=== PATIENT | female | born 1985 | race Asian ===

== ENCOUNTER 2020-05-09 02:13 | Inpatient (IN) | payer MEDICAID ==
[~2020-05-09] VITALS: Ht 152.4 cm; Wt 71.2 kg
[2020-05-09] MEDS ORDERED: PROMETHAZINE HCL 25 MG/ML 1ML AMPULE IM PRN (02:30)
[2020-05-09] MEDS ORDERED: ROPIVACAINE 0.2% 100ML VIAL 100 ML EP PRN (02:30)
[2020-05-09] MEDS ORDERED: LACTATED RINGERS 1000ML 1,000 ML IV PRN (02:30)
[2020-05-09] MEDS ORDERED: EPHEDRINE SULFATE 50 MG/ML AMPULE IVP PRN (02:30)
[2020-05-09] MEDS ORDERED: NALOXONE HCL 0.4 MG/1 ML ML IV PRN (02:30)
[2020-05-09] MEDS ORDERED: MEPERIDINE-PF 50 MG/ML SYG IVP PRN (02:30)
[2020-05-09] MEDS ORDERED: LACTATED RINGERS 500 ML 500 ML IV PRN (02:30)
[2020-05-09] MEDS ORDERED: AMPICILLIN 2GM+NS 100ML 100 ML IV ONE (02:39)
[2020-05-09 02:45] VITALS: BP 119/75
[2020-05-09] MEDS ORDERED: AMPICILLIN 2GM+NS 100ML 100 ML IV SCH (02:45)
[2020-05-09 03:00] LABS: BILIRUBIN,URINE Negative (NEGATIVE); COLOR,URINE Yellow (YELLOW); GLUCOSE, URINE (UA) Negative (NEGATIVE); KETONES,URINE Trace mg/dL (NEGATIVE); LEUKOCYTE ESTERASE ,URINE Large (NEGATIVE); NITRATE,URINE Negative (NEGATIVE); OCCULT BLOOD,URINE Negative (NEGATIVE); PH,URINE 6.5 (5.0-8.0); PROTEIN,URINE Negative (NEGATIVE)
[2020-05-09 03:05] LABS: MEAN CORPUSCULAR HEMOGLOBIN 21.9 pg (27.0-33.0); MEAN CORPUSCULAR HGB CONC 31.7 g/dL (32.0-36.0); MEAN CORPUSCULAR VOLUME 68.9 fL (79-99); PLATELET COUNT (AUTO) 159 K/uL (130-400); RED BLOOD CELL COUNT(AUTO) 5.08 MIL/uL (4.00-5.50); WHITE BLOOD COUNT (AUTO) 10.5 K/uL (4.8-10.8)
[2020-05-09 03:07] LABS: APPEARANCE,URINE SLIGHTLY CLOUDY (CLEAR)
[2020-05-09 03:09] LABS: BACTERIA,URINE Moderate /HPF (None Seen); RBC,URINE 0-1 /HPF (0-1); SQUAMOUS EPITHELIAL CELL,UR Moderate /HPF (0-2); WBC,URINE 26-50 /HPF (0-1)
[2020-05-09] MEDS ORDERED: PREN1TAB80 PO (03:54)
[2020-05-09] MEDS ORDERED: AMPICILLIN 1GM+NS 50ML 50 ML IV SCH (06:45)
[2020-05-09 08:06] LABS: RAPID PLASMA REAGIN NONREACTIVE (NONREACTIVE)
[2020-05-09] MEDS ORDERED: FENTANYL CITRATE PF 50 MCG/1 ML 2ML VIAL ONE (10:54)
[2020-05-09] MEDS ORDERED: OXYTOCIN-LR 20 UNITS/1000 ML 1,000 ML IV SCH ×2 (11:30→14:00)
[2020-05-09] MEDS ORDERED: OXYTOCIN-LR 20 UNITS/1000 ML 1,000 ML IV ONE (12:05)
[2020-05-09] MEDS ORDERED: ACETAMINOPHEN-CODEINE 300/30MG TAB PO PRN (14:00)
[2020-05-09] MEDS ORDERED: BENZOCAINE/LANOLIN/ALOE VERA 60 ML AEROSOL TP PRN (14:00)
[2020-05-09] MEDS ORDERED: LANOLIN 30GM OINTMENT TP PRN (14:00)
[2020-05-09] MEDS ORDERED: MEASLES/MUMPS/RUBELLA VACCINE, LIVE 0.5 ML/VIAL SQ PRN (14:00)
[2020-05-09] MEDS ORDERED: ACETAMINOPHEN 325 MG TAB PO PRN (14:00)
[2020-05-09] MEDS ORDERED: DIPH,PERTUSS(ACELL),TET VAC/PF 0.5 ML VIAL IM PRN (14:00)
[2020-05-09] MEDS ORDERED: WITCH HAZEL 1 PAD TP PRN (14:00)
[2020-05-09 16:15] VITALS: BP 138/79
[2020-05-09] MEDS: IBUPROFEN 600 MG TABLET PO PRN (17:13)
[2020-05-09 19:30] VITALS: BP 105/58
[2020-05-09] MEDS: DOCUSATE SODIUM 100 MG CAP PO SCH (20:34)
[2020-05-09 23:00] VITALS: BP 109/59
[2020-05-10 04:00] VITALS: BP 106/60
[2020-05-10] MEDS: IBUPROFEN 600 MG TABLET PO PRN ×3 (04:27→14:50)
[2020-05-10 09:00] VITALS: BP 128/78
[2020-05-10] MEDS: DOCUSATE SODIUM 100 MG CAP PO SCH (09:00)
[2020-05-10 13:00] VITALS: BP 117/66
[2020-05-12 04:10] LABS: HEPATITIS Bs ANTIGEN SCREEN P Negative (Negative)
== END 2020-05-10 14:55 | disposition home or self-care (01) | DRG 560 ==
LOC: EDH 02:13 → LDH 02:14 → OBSVTOIN 02:14 → WSH 16:09
PROVIDERS: ADMIT Specialist; ATTEND Specialist
PROC: 10E0XZZ Delivery of Products of Conception, External Approach (ICD-10-PCS; principal; 2020-05-09)
PROC: 3E0234Z Introduction of Serum, Toxoid and Vaccine into Muscle, Percutaneous Approach (ICD-10-PCS; 2020-05-09)
PROC: 3E0134Z Introduction of Serum, Toxoid and Vaccine into Subcutaneous Tissue, Percutaneous Approach (ICD-10-PCS; 2020-05-09)
PROC: 3E0R3BZ Introduction of Anesthetic Agent into Spinal Canal, Percutaneous Approach (ICD-10-PCS; 2020-05-09)
PROC: 00HU33Z Insertion of Infusion Device into Spinal Canal, Percutaneous Approach (ICD-10-PCS; 2020-05-09)
PROC: 10907ZC Drainage of Amniotic Fluid, Therapeutic from Products of Conception, Via Natural or Artificial Opening (ICD-10-PCS; 2020-05-09)
DX: O80 Encounter for full-term uncomplicated delivery (principal); Z37.0 Single live birth; Z23 Encounter for immunization; Z3A.40 40 weeks gestation of pregnancy; Z86.32 Personal history of gestational diabetes
CPT/HCPCS: 36415; 81001; 85027; 86592; 86701; 86850; 86900; 87088; 87340; 87390; A4314; G0378; J0290; J2590; J2795; J3010; J7120